=== PATIENT | female | born 1965 | race Caucasian/White ===

== ENCOUNTER 2024-01-25 14:45 | Emergency (ER) | payer OTHER ==
[2024-01-25 15:01] VITALS: BP 128/71; PULSE 80; RESP 18; TEMP 98.2; BMI 33.7
[2024-01-25 16:02] LABS: BASO % 0.5 % (0-2.0); EOS % 1.5 % (0-4.5); HEMATOCRIT 39.3 % (32.4-45.2); HEMOGLOBIN 13.7 GM/dL (10.7-15.3); LYMPH % 33.9 % (8-40); MCHC 34.8 g/dl (32.0-36.0); MEAN CELL VOLUME 80.6 fl (80-96); MEAN PLT VOLUME 7.3 fl (7.5-11.1); MONO % 4.2 % (3.8-10.2); NEUT % 59.9 % (42.8-82.8); PLATELET COUNT 181 10^3/uL (134-434); RBC 4.88 M/mm3 (3.60-5.2); RDW 13.2 % (11.6-15.6); WHITE BLOOD COUNT 4.5 K/mm3 (4.0-10.0)
[2024-01-25] MEDS ORDERED: HIV POST EXPOSURE PROPHYLAXIS KIT NR ONE (16:15)
[2024-01-25 16:17] LABS: POTASSIUM 4.1 mmol/L (3.5-5.1)
[2024-01-25 16:20] LABS: ALBUMIN 3.7 g/dl (3.4-5.0); CALCIUM 9.1 mg/dL (8.5-10.1)
[2024-01-25 16:23] LABS: CREATININE 0.9 mg/dL (0.55-1.3)
[2024-01-25 16:24] LABS: TOT PROT 7.2 g/dl (6.4-8.2)
[2024-01-25 16:25] LABS: BILIRUBIN,TOTAL 0.7 mg/dL (0.2-1)
[2024-01-25] MEDS ORDERED: HIV POST EXPOSURE PROPHYLAXIS KIT PO ONE (16:34)
[2024-01-25 17:17] LABS: HIV INTERPRETATION NEGATIVE (NEGATIVE)
== END 2024-01-25 16:58 | disposition home or self-care (01) ==
LOC: JERFT 14:45 → JER 14:45 → JERFT 16:58
DX: S61.231A Puncture wound without foreign body of left index finger without damage to nail, initial encounter (principal); W46.1XXA Contact with contaminated hypodermic needle, initial encounter; Y99.0 Civilian activity done for income or pay
CPT/HCPCS: 36415; 80053; 82465; 82977; 84100; 85025; 86704; 86803; 87340; 87389; 87517; 99283-25